=== PATIENT | female | born 1960 | race Caucasian/White ===

== ENCOUNTER → 2016-03-19 | Outpatient (CLI) | payer BC, OTHER ==
[~2016-03-19] MED LIST: ACET-1256 PO; LEVO-217 PO; OTC ACID REDUCER PO
== END | disposition home or self-care (01) ==
LOC: C.LABPVFM 14:29
PROVIDERS: ATTEND Family Medicine
DX: K65.1 Peritoneal abscess (principal)

== ENCOUNTER → 2017-01-25 | Outpatient (CLI) | payer BC ==
--- NOTE | 2017-01-26 15:31 | MAMMOGRAPHY REPORT ---
BILATERAL DIGITAL SCREENING MAMMOGRAM TOMOSYNTHESIS WITH CAD: 01/25/2017 CLINICAL HISTORY: Routine screening. TECHNIQUE: Breast tomosynthesis in addition to standard 2D mammography was performed. Current study was also evaluated with a Computer Aided Detection (CAD) system. COMPARISON: Comparison is made to exams dated: 01/20/2016 mammogram, 01/16/2015 mammogram, 01/03/2014 mammogram, 01/01/2013 mammogram - [facility], 03/20/2007, and 03/16/2006. BREAST COMPOSITION: The tissue of both breasts is almost entirely fatty. FINDINGS: No suspicious masses, calcifications, or areas of architectural distortion are noted in ei ther breast. There has been no significant interval change compared to prior exams. IMPRESSION: ACR BI-RADS CATEGORY 1: NEGATIVE There is no mammographic evidence of malignancy. A 1 year screening mammogram is recommended. The pa tient will receive written notification of the results. Approximately 10% of breast cancers are not detected with mammography. A negative mammographic report should not delay biopsy if a clinically suggestive mass is present. Valeria Bhatt M.D. ah/:01/26/2017 07:35:53 Custom Clothier: Estefania Gomez RT(R)(M), [facility] letter sent: Normal 1/2 BI-RADS Code: ACR BI-RADS Category 1: Negative
== END | disposition home or self-care (01) ==
LOC: C.MAMM 17:03
PROVIDERS: ATTEND Family Medicine
DX: Z12.31 Encounter for screening mammogram for malignant neoplasm of breast (principal)

== ENCOUNTER → 2017-07-19 | Outpatient (CLI) | payer BC ==
[2017-07-19 17:36] LABS: BASO % 0.2 %; BASO ABS # 0.01 K/uL (0-0.2); EOS % 0.2 %; EOS ABS # 0.01 K/uL (0-0.5); IG# 0.01 K/uL (0.00-0.02); LYMPH % 19.3 %; LYMPH ABS # 1.17 K/uL (1.2-3.4); MEAN CELL VOLUME 91.8 fL (80-100); MEAN CORPUSCULAR HEMOGLOBIN 30.6 pg (25-34); MEAN CORPUSCULAR HGB CONC 33.3 g/dl (32-36); MEAN PLATELET VOLUME 10.9 fL (7.4-10.4); MONO % 8.4 %; MONO ABS # 0.51 K/uL (0.11-0.59); NEUT % 71.7 %; NEUT ABS # 4.34 K/uL (1.4-6.5); PLATELET COUNT 232 K/uL (130-400); RED CELL DISTRIBUTION WIDTH CV 13.4 % (11.5-14.5); RED CELL DISTRIBUTION WIDTH SD 44.8 fL (36.4-46.3); WHITE BLOOD COUNT 6.05 K/uL (4.8-10.8)
[2017-07-19 17:55] LABS: ALBUMIN 2.5 gm/dl (3.4-5.0); ALT/SGPT 26 U/L (12-78); AST/SGOT 19 U/L (15-37); BLOOD UREA NITROGEN 50 mg/dl (7-18); CALCIUM 8.4 mg/dl (8.5-10.1); CARBON DIOXIDE 24 mmol/L (21-32); CREATININE 3.03 mg/dl (0.60-1.20); GLUCOSE 91 mg/dl (70-99); POTASSIUM 4.5 mmol/L (3.5-5.1); SODIUM 141 mmol/L (136-145)
[2017-07-19 18:06] LABS: ALKALINE PHOSPHATASE 89 U/L (45-117); TOTAL PROTEIN 6.6 gm/dl (6.4-8.2)
== END | disposition home or self-care (01) ==
LOC: C.LABPVFM 13:38
PROVIDERS: ATTEND Family Medicine
DX: R60.9 Edema, unspecified (principal)

== ENCOUNTER 2017-07-20 16:03 | Inpatient (IN) | payer BC ==
[~2017-07-20] VITALS: Ht 160 cm; Wt 119.3 kg
[2017-07-20 16:45] VITALS: BP 186/104; PULSE 72; TEMP 37; O2SAT 99; Ht 160 cm; Wt 119.3 kg
[2017-07-20 17:15] VITALS: BP 166/58; PULSE 74; O2SAT 99
[2017-07-20] MEDS ORDERED: HydrALAZINE HCL 20 MG/ML VIAL IV. PRN (17:30)
[2017-07-20] MEDS ORDERED: POLYETHYLENE (MIRALAX) 17 GM PACK PO PRN (17:30)
[2017-07-20] MEDS ORDERED: ONDANSETRON INJ 2 MG/ML 2 ML VIAL IV PRN (17:30)
[2017-07-20] MEDS ORDERED: ALUMINUM/MAGNESIUM/SIMETH (MAALOX MAX) 30 ML UDC PO PRN (17:30)
[2017-07-20] MEDS ORDERED: ZOLPIDEM TARTRATE 5 MG TAB PO PRN (17:30)
[2017-07-20] MEDS ORDERED: MoRPHine SULFATE 4 MG/ML 1 ML CARP\\VIAL IV PRN (17:30)
[2017-07-20] MEDS ORDERED: MAGNESIUM HYDROXIDE SUSP 30 ML UDC PO PRN (17:30)
[2017-07-20] MEDS ORDERED: ACETAMINOPHEN 325 MG TAB PO PRN (17:30)
[2017-07-20 18:08] LABS: HEMATOCRIT 35.5 % (37-47); HEMOGLOBIN 11.7 g/dL (12.0-16.0); MEAN CELL VOLUME 91.3 fL (80-100); MEAN CORPUSCULAR HEMOGLOBIN 30.1 pg (25-34); MEAN PLATELET VOLUME 9.8 fL (7.4-10.4); PLATELET COUNT 179 K/uL (130-400); RED CELL DISTRIBUTION WIDTH CV 13.3 % (11.5-14.5); RED CELL DISTRIBUTION WIDTH SD 44.2 fL (36.4-46.3); WHITE BLOOD COUNT 5.23 K/uL (4.8-10.8)
--- NOTE | 2017-07-20 18:20 | History and Physical ---
History & Physical Date & Time of Service: July 20, 2017 at 17:55 Chief Complaint: Bilateral Lower Leg Edema; Chf Primary Care Physician: Lucio Lowery M.D. History of Present Illness Source: patient, other 56 y/o F Hx Hypothyroidism, LE edema, obesity. She was recently evaluated for LE edema at her primary MD's office. She take Triamterene/HCTZ recently and was additionally prescribed Lasix following her MD visit one day ago. Prior to taking Lasix, labs were drawn. Her creatinine returned at 3. She does not have a history of CKD and was instructed to attend the hospital therefore. She denies any SOB, CP, nausea, vomiting or dysuria, although she does have urinary frequency which may be related to diuretic use. She did take a single dose of Lasix the AM of admission. It was noted that her SBP was > 180 on arrival and that a bladder scan revealed 440 CC. Past Medical/Surgical History 1) Hypothyroidism 2) LE edema 3) Obesity Family History Father following a CVA Mother due to [place] Social History Smoking Status: Never Smoker Marital Status: Occupational Status: unemployed Immunizations History of Influenza Vaccine: N/A History of Tetanus Vaccine?: Yes History of Pneumococcal: No History of Hepatitis B Vaccine: Unknown Allergies Coded Allergies: Amoxicillin (Verified Allergy, Unknown, CHILDHOOD, 04/06/12) Home Medications Scheduled Levothyroxine (Levothroid), 0.05 MG PO DAILY [Otc Acid Photo Print Specialist], 1 TAB PO DAILY Scheduled PRN Acetaminophen (Tylenol), 1,000 MG PO Q4 PRN Review of Systems Constitutional: No fever, No chills, No sweats Eyes: No worsening of vision ENT: No hearing loss, No unusual epistaxis, No nasal symptoms Respiratory: No cough, No wheezing Cardiovascular: No chest pain, No orthopnea, No PND Abdomen: No pain, No nausea, No vomiting Musculoskeletal: + problem reported (LE edema), No joint pain Genitourinary - Female: + urinary frequency, No dysuria Neurologic: No memory loss, No paralysis, No weakness Psychiatric: No depression symptoms Endocrine: No fatigue Hematologic / Lymphatic: No abnormal bleeding/bruising Integumentary: No rash Allergic / Immunologic: No environmental allergies Physical Exam Vital Signs Date Time Temp Pulse Resp B/P (MAP) Pulse Ox O2 Delivery O2 Flow Rate FiO2 07/20/17 17:15 74 18 166/58 (94) 99 Room Air 07/20/17 16:45 37.0 72 18 186/104 99 Room Air General Appearance: WD/WN Head: normocephalic Eyes: normal inspection ENT: normal ENT inspection, pharynx normal Neck: supple, no JVD Respiratory/Chest: chest non-tender, lungs clear, normal breath sounds Cardiovascular: regular rate, rhythm Abdomen/GI: normal bowel sounds, non tender, soft Back: normal inspection, no CVA tenderness Extremities/Musculoskelatal: + pertinent finding ( do not appreciate any pitting edema presently) 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 She was recently evaluated for LE edema at her primary MD's office. She take Triamterene/HCTZ recently and was additionally prescribed Lasix following her MD visit one day ago. Prior to taking Lasix, labs were drawn. Her creatinine returned at 3. She does not have a history of CKD and was instructed to attend the hospital therefore. She denies any SOB, CP, nausea, vomiting or dysuria, although she does have urinary frequency which may be related to diuretic use. She did take a single dose of Lasix the AM of admission. It was noted that her SBP was > 180 on arrival and that a bladder scan revealed 440 CC. 1) CORINNE - we do not have recent numbers for comparison. She does not have a history of renal insufficiency, however, we cannot be entirely sure that this is acute. Her normal K may point toward a more chronic process. Possible differential may include: - chronic retention - an ultrasound is ordered - we may have to obtain a CT due to her habitus if the study is not adequate - a treadwell is placed overnight. - HTN nephropathy - we will focus on improved BP control and have placed her on PRN Hydralazine for now - overdiuresis - diuretics have DCd - we will prvide aggressive IVF overnight - urine Na and creatinine are pending - Renal artery stenosis can be considered due to her elevated BP and creatinine - this should be pursued if the above etiologies are ruled out. A nephrology consult should be placed if hydration alone does not lead to improvement and would consider a urology consult if hydronephrosis is present. 2) LE edema - there is no pitting edema presently - the pt may need to pursue alternate methods of reducing edema to include pressure stockings, elevation and importantly, weight loss. 3) HTN - denies a history of - as mentioned, we have placed her on PRN Hydralizine to better trend her pressure and assess need for treatment - ultimately with improved renal function, she may benefit from an FILIBERTO or ARB. 4) Hypothyroidism - cont Synthroid Full code - Heparin prophylaxis Total time for this admit including review of labs, meds, imaging, records - discussion with pt and primary attending - 37 min Advanced Directives Existing Living Will: No Existing Power of Hydrographer: No Resuscitation Status VTE Prophylaxis Will order VTE Prophylaxis: Yes
[2017-07-20] MEDS: SODIUM CHLORIDE 0.9% 1000ML 1,000 ML IV SCH ×2 (18:29→23:55)
[2017-07-20 18:30] VITALS: BP 186/98
[2017-07-20 18:32] LABS: PTT PATIENT 27.8 SECONDS (21.0-31.0)
[2017-07-20 19:08] VITALS: BP 186/89
[2017-07-20] MEDS: HEPARIN SOD 5000 UNIT/0.5 ML CARP SQ SCH (19:30)
[2017-07-20 19:59] VITALS: BP 148/80; PULSE 68; TEMP 36.9; O2SAT 97
[2017-07-20] MEDS: RANITIDINE HCL 150 MG TAB PO SCH (20:50)
--- NOTE | 2017-07-20 21:57 | DIAGNOSTIC IMAGING REPORT ---
(RENAL)RETROPERITON COMP HISTORY: 56 years-old Female hydronephrosis acute hydronephrosis COMPARISON: None available TECHNIQUE: Multiple real-time sonographic images of the kidneys and urinary bladder were obtained assessing grayscale appearance and color flow FINDINGS: The right kidney measures 13.2 x 4.9 x 4.8 cm and is unremarkable without hydronephrosis, renal calculi or suspicious mass lesions. Cortical medullary differentiation is preserved. Incidental note is made of increased echogenicity of the hepatic parenchyma with poor through transmission. Left kidney measures 12.1 x 5.5 x 5.5 cm and is also within normal limits without renal calculi, hydronephrosis, or suspicious mass lesions. Cortical medullary differentiation is preserved. Urinary bladder is decompressed with bilateral ureteral jets noted. IMPRESSION: 1. Unremarkable sonographic appearance of the bilateral kidneys without renal calculi or hydronephrosis. 2. Decompressed urinary bladder. 3. Hepatic steatosis. The above report was generated using voice recognition software. It may contain grammatical, syntax or spelling errors. Electronically signed by: Ganesh Ontiveros M.D. 07/20/2017 9:56 PM Dictated Date/Time: 07/20/2017 9:54 PM
[2017-07-21] VITALS (8 sets, daily range): BP systolic 146–166; BP diastolic 75–94; PULSE 69–77; TEMP 36.4–37.1; O2SAT 95–98
[2017-07-21] MEDS: HEPARIN SOD 5000 UNIT/0.5 ML CARP SQ SCH ×3 (06:00→22:34)
[2017-07-21] MEDS: SODIUM CHLORIDE 0.9% 1000ML 1,000 ML IV SCH (06:44)
[2017-07-21] MEDS: LEVOTHYROXINE 50 MCG TAB PO SCH (06:45)
[2017-07-21 07:19] LABS: CALCIUM 7.8 mg/dl (8.5-10.1); POTASSIUM 4.4 mmol/L (3.5-5.1)
--- NOTE | 2017-07-21 09:32 | ECHOCARDIOGRAM REPORT ---
*NOTICE TO RECEIVING [employer] This information is strictly Confidential and protected under [place] law. [place] law prohibits you from making any further disclosure of this information unless further disclosure is expressly permitted by the written consent of the person to whom it pertains or is authorized by law. A general authorization for the release of medical or other information is not sufficient for this purpose. Hospital accepts no responsibility if the information is made available to any other person, INCLUDING THE PATIENT. Interpretation Summary * Name: ANDREW BARTON Study Date: 07/21/2017 06:58 AM BP: 166/87 mmHg * Patient Location: .2E\S\E208\S\1 HR: 72 * : 1960 (M/d/yyyy) Gender: Female Height: 63 in * Age: 56 yrs Ethnicity: [place] Weight: 258 lb * Ordering Physician: Ajit Cloud * Referring Physician: Lucio Lowery * Performed By: Debora Parish RDCS * * Reason For Study: CHF * BSA: 2.2 m2 * -- Conclusions -- * 1. Normal LV size. Mild concentric LVH. * 2. Normal LV systolic function. LVEF 55-60%. No regional wall motion abnormalities. * 3. Normal RV size and function. * 4. Grade I diastolic function. * 5. No significant valvular pathology. * 6. Compared with prior study on 11/16/2012: No significant changes. Procedure Details * A complete two-dimensional transthoracic echocardiogram was performed (2D, M-mode, Doppler and color flow Doppler). Left Ventricle * The left ventricle is grossly normal size. * There is mild concentric left ventricular hypertrophy. * Ejection Fraction = 55-60%. * No regional wall motion abnormalities noted. Right Ventricle * The right ventricle is grossly normal size. * The right ventricular systolic function is normal as assessed by tricuspid annular plane systolic excursion (TAPSE) (normal >1.5 cm). Atria * The left atrium is mildly dilated. * Right atrial size is normal. Mitral Valve * The mitral valve is grossly normal. * There is no mitral valve stenosis. * There is trace mitral regurgitation. Tricuspid Valve * There is trace tricuspid regurgitation. Aortic Valve * The aortic valve opens well. * The aortic valve is trileaflet. * No hemodynamically significant valvular aortic stenosis. * There is no significant aortic regurgitation. Great Vessels * The aortic root and proximal ascending aorta are normal sized. * IVC < 2.1, <50% change with respiration. Left Ventricular Diastolic Function * Grade I diastolic dysfunction, (abnormal relaxation pattern). MMode 2D Measurements and Calculations IVSd 1.3 cm IVSs 1.8 cm LVIDd 4.1 cm LVIDs 2.8 cm LVPWd 1.5 cm LVPWs 1.9 cm IVS/LVPW 0.87 FS 30.0 % EDV(Teich) 73.0 ml ESV(Teich) 30.8 ml EF(Teich) 57.7 % EDV(cubed) 67.5 ml ESV(cubed) 23.1 ml EF(cubed) 65.7 % % IVS thick 38.2 % % LVPW thick 27.7 % LV mass(C)d 220.8 grams LV mass(C)dI 102.5 grams/m\S\2 LV mass(C)s 224.2 grams LV mass(C)sI 104.0 grams/m\S\2 SV(Teich) 42.1 ml SI(Teich) 19.6 ml/m\S\2 SV(cubed) 44.3 ml SI(cubed) 20.6 ml/m\S\2 Ao root diam 3.0 cm Ao root area 7.3 cm\S\2 LA dimension 3.7 cm LA/Ao 1.2 LVAd ap4 31.8 cm\S\2 LVLd ap4 8.1 cm EDV(MOD-sp4) 101.4 ml EDV(sp4-el) 106.2 ml LVAs ap4 19.6 cm\S\2 LVLs ap4 7.1 cm ESV(MOD-sp4) 45.6 ml ESV(sp4-el) 45.8 ml EF(MOD-sp4) 55.1 % EF(sp4-el) 56.9 % LVAd ap2 28.7 cm\S\2 LVLd ap2 8.4 cm EDV(MOD-sp2) 78.7 ml EDV(sp2-el) 83.5 ml LVAs ap2 16.0 cm\S\2 LVLs ap2 6.8 cm ESV(MOD-sp2) 31.5 ml ESV(sp2-el) 31.9 ml EF(MOD-sp2) 60.0 % EF(sp2-el) 61.8 % LVLd %diff 3.9 % EDV(MOD-bp) 92.1 ml LVLs %diff -4.20 % ESV(MOD-bp) 38.2 ml EF(MOD-bp) 58.5 % SV(MOD-sp4) 55.8 ml SI(MOD-sp4) 25.9 ml/m\S\2 SV(MOD-sp2) 47.2 ml SI(MOD-sp2) 21.9 ml/m\S\2 SV(MOD-bp) 53.9 ml SI(MOD-bp) 25.0 ml/m\S\2 SV(sp4-el) 60.4 ml SI(sp4-el) 28.0 ml/m\S\2 SV(sp2-el) 51.6 ml SI(sp2-el) 23.9 ml/m\S\2 Doppler Measurements and Calculations MV E max mima 112.7 cm/sec MV A max mima 115.9 cm/sec MV E/A 0.97 MV dec time 0.27 sec Ao V2 max 136.4 cm/sec Ao max PG 7.4 mmHg Ao max PG (full) 4.4 mmHg LV V1 max PG 3.0 mmHg LV V1 max 87.1 cm/sec
[2017-07-21] MEDS ORDERED: NURSING VERBAL MED ORDER ONE (11:00)
--- NOTE | 2017-07-21 17:38 | Family Medicine Progress Note ---
Progress Note Date of Service July 21, 2017. Subjective Patient is sitting comfortably in bed, and denies any complaints at this time. Denies nausea, orthopnea, PND, or chest pain. Says the swelling in her legs has decreased somewhat since yesterday. Is eating and voiding well, no acute events overnight. Endorses a recent history of flu-like illness ~2 weeks ago, with persistent nausea after. She was seen by PCP for nausea, also a/w swelling of legs and treated with lasix and nausea medication. BMP in Jan 2016 revealed creatinine of 1.03. Says her BP was controlled with her current medication. Pt denies a FH of kidney disease, however states father from [place] at age 52. ROS See HPI for pertinent positives and negatives. Objective Physical Exam Notes: GENERAL: Awake, alert, well-appearing, in no distress. Obese. HENT: Normocephalic, atraumatic. EYES: Normal conjunctiva. Sclera non-icteric. NECK: Supple. FROM. No JVD. RESPIRATORY: Clear to auscultation. CARDIAC: Regular rate, normal rhythm. Extremities warm and well perfused. Pulses equal. ABDOMEN: Soft, non-distended. No tenderness to palpation. No rebound or guarding. No masses. LOWER EXTREMITIES: Calves are equal size bilaterally and non-tender. Trace edema. No discoloration. NEURO: No motor deficits noted. SKIN: No rash or jaundice noted. Assessment and Plan 56F here for CORINNE and leg swelling with recent h/o flu like illness 2 weeks prior. PMHx of HTN, obesity and hypothyroidism 1. nonoliguric CORINNE - output is adequate overnight and today - creatinine has not responded to fluids - FeNa calculated 1.3 - intrinsic causes may include ATN, uncontrolled hypertension - Renal US shows unremarkable b/l kidneys w/o calculi or hydronephrosis and hepatic steatosis. - UA shows 4+ protein which is in nephrotic range. - Recent flu-like illness may also have been contributory to an autoimmune process possibly - consider nephro consult if renal function worsens 2. Hypertension - Triamterene/HCTZ held due to elev manager interventional - 5mg hydralazine given yesterday - changed to low dose Metoprolol tartr 25mg x 1 dose given this evening. 3. LE edema - Echo 2017 shows grade I diastolic CHF, no significant changes when compared with study done in 2013. LVEF remains 55-60%. - pt may benefit from compression stockings and weight loss Hypothyroidism - cont synthroid DVT ppx: heparin Code: FULL Dispo: tele - to home on dc Current Inpatient Medications Medications (Trade) Dose Ordered Sig/Vinny Route Start Time Stop Time Status Last Admin Dose Admin Hydralazine HCl (HydrALAZINE INJ) 5 mg Q8H PRN IV. 07/20/17 17:30 08/19/17 17:29 07/21/17 07:44 5 MG Heparin Sodium (Porcine) (Heparin Sq 5000 Unit/0.5ml) 5,000 unit Q8 SQ 07/20/17 22:00 08/19/17 21:59 Acetaminophen (Tylenol Tab) 650 mg Q4H PRN PO 07/20/17 17:30 08/19/17 17:29 07/20/17 20:49 650 MG Al Hydrox/Mg Hydrox/Simethicone (Maalox Max Susp) 15 ml Q4H PRN PO 07/20/17 17:30 08/19/17 17:29 Magnesium Hydroxide (Milk Of Magnesia Susp) 30 ml Q12H PRN PO 07/20/17 17:30 08/19/17 17:29 Zolpidem Tartrate (Ambien Tab) 5 mg HSZ PRN PO 07/20/17 17:30 08/19/17 17:29 Ondansetron HCl (Zofran Inj) 4 mg Q6H PRN IV 07/20/17 17:30 08/19/17 17:29 Morphine Sulfate (MoRPHine SULFATE INJ) 2 mg Q30M PRN IV 07/20/17 17:30 08/03/17 17:29 Polyethylene (Miralax Powder Packet) 17 gm DAILY PRN PO 07/20/17 17:30 08/19/17 17:29 Levothyroxine Sodium (Synthroid Tab) 50 mcg DAILYBB PO 07/21/17 06:00 08/20/17 05:59 07/21/17 06:45 50 MCG Ranitidine HCl (zANTac TAB) 150 mg HS PO 07/20/17 21:00 08/19/17 20:59 07/20/17 20:50 150 MG Date Time Temp Pulse Resp B/P (MAP) Pulse Ox O2 Delivery O2 Flow Rate FiO2 07/21/17 15:40 37.1 74 18 162/92 (115) 97 Room Air 07/21/17 12:00 Room Air 07/21/17 11:29 36.4 70 18 166/94 (118) 98 07/21/17 08:00 Room Air 07/21/17 07:35 37.0 72 18 166/87 (113) 97 07/21/17 04:00 Room Air 07/21/17 03:35 36.9 69 19 166/89 (114) 96 Room Air 07/21/17 00:00 Room Air 07/21/17 00:00 36.8 75 20 146/75 (98) 95 Room Air 07/20/17 20:00 Room Air 07/20/17 19:59 36.9 68 18 148/80 (102) 97 Room Air 07/20/17 19:08 186/89 (121) 07/20/17 18:30 186/98 (127) 07/20/17 17:58 07/21/17 06:00 Test 07/20/17 17:58 07/20/17 19:05 07/21/17 06:00 Red Blood Count 3.89 M/uL (4.2-5.4) Mean Corpuscular Volume 91.3 fL (80-100) Mean Corpuscular Hemoglobin 30.1 pg (25-34) Mean Corpuscular Hemoglobin Concent 33.0 g/dl (32-36) RDW Standard Deviation 44.2 fL (36.4-46.3) RDW Coefficient of Variation 13.3 % (11.5-14.5) Mean Platelet Volume 9.8 fL (7.4-10.4) Prothrombin Time 10.2 SECONDS (9.0-12.0) Prothromb Time International Ratio 1.0 (0.9-1.1) Activated Partial Thromboplast Time 27.8 SECONDS (21.0-31.0) Partial Thromboplastin Ratio 1.1 Urine Color YELLOW Urine Appearance CLOUDY (CLEAR) Urine pH 5.5 (4.5-7.5) Urine Specific [place] 1.025 (1.000-1.030) Urine Protein 4+ (NEG) Urine Glucose (UA) NEG (NEG) Urine Ketones NEG (NEG) Urine Occult Blood 3+ (NEG) Urine Nitrite NEG (NEG) Urine Bilirubin NEG (NEG) Urine Urobilinogen NEG (NEG) Urine Leukocyte Esterase NEG (NEG) Urine WBC (Auto) 10-30 /hpf (0-5) Urine RBC (Auto) 10-30 /hpf (0-4) Urine Hyaline Casts (Auto) 10-30 /lpf (0-5) Urine Epithelial Cells (Auto) >30 /lpf (0-5) Urine Bacteria (Auto) NEG (NEG) Urine Random Creatinine 142.0 mg/dl Urine Random Sodium 90 mEq/L Anion Gap 6.0 mmol/L (3-11) Est Creatinine Clear Calc Drug Dose 25.5 ml/min Estimated GFR () 19.1 Estimated GFR (Non- 16.4 BUN/Creatinine Ratio 15.8 (10-20) Calcium Level 7.8 mg/dl (8.5-10.1) Magnesium Level 2.5 mg/dl (1.8-2.4) Continued [facility] stay due to: multiple IV medications needed Discharge planning: home Resident Tracking Resident Involvement: Resident Care Provided Care Provided: Adult Hospital Medicine Reviewed: Pt Seen/Exam by Me History denies any concerns Constitutional: denies: fever Respiratory: negative: short of breath Cardiovascular: denies chest pain General Appearance: no apparent distress Respiratory: lungs clear, no respiratory distress Cardiovascular: regular rate, rhythm Gastrointestinal: soft Neurologic/Psychiatric: alert, oriented x 3 Skin Characteristics: warm/dry Assessment/Plan Resident Physician Supervision Note: I independently interviewed and examined the patient and verified the dickerson history and physical, reviewed labs and image studies, discussed the case with the resident Dr. Wheeler and agree with the findings and care plan.
[2017-07-21] MEDS ORDERED: METOPROLOL TARTRATE 25 MG TAB PO ONE (17:51)
[2017-07-21] MEDS: RANITIDINE HCL 150 MG TAB PO SCH (18:22)
[2017-07-22] VITALS (9 sets, daily range): BP systolic 151–175; BP diastolic 82–97; PULSE 58–78; TEMP 36.5–37; O2SAT 96–98
[2017-07-22] MEDS: LEVOTHYROXINE 50 MCG TAB PO SCH (05:47)
[2017-07-22] MEDS: HEPARIN SOD 5000 UNIT/0.5 ML CARP SQ SCH ×3 (05:48→22:00)
[2017-07-22 06:02] LABS: BASO % 0.2 %; BASO ABS # 0.01 K/uL (0-0.2); HEMATOCRIT 32.7 % (37-47); HEMOGLOBIN 10.8 g/dL (12.0-16.0); IG# 0.01 K/uL (0.00-0.02); LYMPH ABS # 1.05 K/uL (1.2-3.4); MEAN CELL VOLUME 91.3 fL (80-100); MEAN CORPUSCULAR HEMOGLOBIN 30.2 pg (25-34); MEAN PLATELET VOLUME 10.2 fL (7.4-10.4); MONO % 7.8 %; MONO ABS # 0.37 K/uL (0.11-0.59); NEUT % 69.8 %; NEUT ABS # 3.33 K/uL (1.4-6.5); PLATELET COUNT 156 K/uL (130-400); RED CELL DISTRIBUTION WIDTH CV 13.3 % (11.5-14.5); RED CELL DISTRIBUTION WIDTH SD 44.8 fL (36.4-46.3); WHITE BLOOD COUNT 4.77 K/uL (4.8-10.8)
[2017-07-22 06:24] LABS: CALCIUM 7.7 mg/dl (8.5-10.1); CREATININE 3.12 mg/dl (0.60-1.20); POTASSIUM 4.5 mmol/L (3.5-5.1)
[2017-07-22] MEDS ORDERED: FUROSEMIDE INJ 40 MG in SYRINGE 0 ML IV ONE (11:00)
--- NOTE | 2017-07-22 13:14 | Nephrology Consultation ---
Nephrology Consultation Date & Providers Date of Consultation: July 22, 2017. Primary Care Provider: Lucio Lowery M.D. Referring Provider: Reason for Consultation CORINNE, proteinuria History of Present Illness Mrs. Shelby Nugent is a 56-year-old female who presented to [facility] on July 20 with lower extremity edema and acute renal insufficiency and accelerated hypertension. Shelby has normal kidney function at baseline. Serum creatinine in January 2017 was documented at 1.3 mg/dL. In June the patient and her suffered from a GI illness. She describes 2 weeks of loose stool, nausea and vomiting. Symptoms resolved approximately 1-2 weeks ago. Shelby started to notice swelling in her lower extremities around this time. Edema progressed gradually over days. She noted swelling in arms and legs and some puffiness in her face. She denied significant dyspnea. She denies similar symptoms in the past. Her PCP tried to treat the symptoms with HCTZ/ triamterene without response. Laboratory studies were ordered by the patient's PCP (Dr. Johnson) prior to admission to the hospital. Laboratory studies were notable for a serum creatinine of 3.1 mg/dL. Metabolic profile was otherwise notable for a serum albumin of 2.5. UA/microscopy documented 4+ protein with >30 RBC and >30 WBC. Renal ultrasound demonstrated normal appearing kidneys. Shelby has been non oliguric. She reported good urine output to an initial dose of furosemide. Diuretics have now been held for 24 hours. The patient was seen and evaluated in her hospital room this morning. Her was at the bedside. Medical records were reviewed in detail. Imaging including renal US and TTE were personally reviewed. Plan of care was discussed with the primary team. Shelby denies any NSAID use. She denies synovitis, arthritis or effusions. She denies oral ulcers or lesions. She denies skin rashes or lesions. There is no history of IV drug use or illicit substance use. Past Medical/Surgical History Medical: 1. Hypertension 2. Obesity 3. GERD 4. Hypothyroidism 5. Rosacea 6. Hyperlipidemia 7. Hiatal hernia Surgical: No significant history reported Allergies Coded Allergies: Amoxicillin (Verified Allergy, Unknown, CHILDHOOD, 04/06/12) Inpatient Medications Current Inpatient Medications Medications (Trade) Dose Ordered Sig/Vinny Route Start Time Stop Time Status Last Admin Dose Admin Hydralazine HCl (HydrALAZINE INJ) 5 mg Q8H PRN IV. 07/20/17 17:30 08/19/17 17:29 Future Hold 07/21/17 07:44 5 MG Heparin Sodium (Porcine) (Heparin Sq 5000 Unit/0.5ml) 5,000 unit Q8 SQ 07/20/17 22:00 08/19/17 21:59 Acetaminophen (Tylenol Tab) 650 mg Q4H PRN PO 07/20/17 17:30 08/19/17 17:29 07/20/17 20:49 650 MG Al Hydrox/Mg Hydrox/Simethicone (Maalox Max Susp) 15 ml Q4H PRN PO 07/20/17 17:30 08/19/17 17:29 Magnesium Hydroxide (Milk Of Magnesia Susp) 30 ml Q12H PRN PO 07/20/17 17:30 08/19/17 17:29 Zolpidem Tartrate (Ambien Tab) 5 mg HSZ PRN PO 07/20/17 17:30 08/19/17 17:29 Ondansetron HCl (Zofran Inj) 4 mg Q6H PRN IV 07/20/17 17:30 08/19/17 17:29 Morphine Sulfate (MoRPHine SULFATE INJ) 2 mg Q30M PRN IV 07/20/17 17:30 08/03/17 17:29 Polyethylene (Miralax Powder Packet) 17 gm DAILY PRN PO 07/20/17 17:30 08/19/17 17:29 Levothyroxine Sodium (Synthroid Tab) 50 mcg DAILYBB PO 07/21/17 06:00 08/20/17 05:59 07/22/17 05:47 50 MCG Ranitidine HCl (zANTac TAB) 150 mg HS PO 07/20/17 21:00 08/19/17 20:59 07/21/17 18:22 150 MG Family History No family history of kidney disease Social History Smoking Status: Never Smoker Marital Status: Occupation: unemployed Review of Systems A complete review of systems was performed. Pertinent positives are noted above. All other systems are negative. Physical Exam Date Time Temp Pulse Resp B/P (MAP) Pulse Ox O2 Delivery O2 Flow Rate FiO2 07/22/17 12:14 97 Room Air 07/22/17 10:51 37.0 73 20 169/91 (117) 98 Room Air 07/22/17 08:00 Room Air 07/22/17 07:29 37.0 65 20 153/94 (113) 97 Room Air 07/22/17 04:00 Room Air 07/22/17 03:34 37.0 78 16 168/91 (116) 96 Room Air 07/22/17 00:00 Room Air 07/21/17 23:00 36.8 77 16 151/75 (100) 96 Room Air 07/21/17 20:00 Room Air 07/21/17 19:52 36.9 70 18 164/86 (112) 96 Room Air 07/21/17 16:00 97 Room Air 07/21/17 15:40 37.1 74 18 162/92 (115) 97 Room Air General Appearance: no apparent distress, + obese Head: normocephalic, atraumatic Eyes: normal inspection, sclerae normal ENT: normal ENT inspection, pharynx normal Neck: supple, no JVD Respiratory/Chest: lungs clear, no respiratory distress, no accessory muscle use Cardiovascular: regular rate, rhythm, no gallop Abdomen/GI: non tender, soft Back: no CVA tenderness Extremities/Musculoskelatal: + pertinent finding (+4 pitting BL LE edema extending to the abdomen, symmmetric UE edema, no periorbital edema) Neurologic/Psych: alert, normal mood/affect Laboratory Results Last 24 Hours Test 07/22/17 05:39 07/22/17 10:50 07/22/17 12:23 White Blood Count 4.77 K/uL Red Blood Count 3.58 M/uL Hemoglobin 10.8 g/dL Hematocrit 32.7 % Mean Corpuscular Volume 91.3 fL Mean Corpuscular Hemoglobin 30.2 pg Mean Corpuscular Hemoglobin Concent 33.0 g/dl Platelet Count 156 K/uL Mean Platelet Volume 10.2 fL Neutrophils (%) (Auto) 69.8 % Lymphocytes (%) (Auto) 22.0 % Monocytes (%) (Auto) 7.8 % Eosinophils (%) (Auto) 0.0 % Basophils (%) (Auto) 0.2 % Neutrophils # (Auto) 3.33 K/uL Lymphocytes # (Auto) 1.05 K/uL Monocytes # (Auto) 0.37 K/uL Eosinophils # (Auto) 0.00 K/uL Basophils # (Auto) 0.01 K/uL RDW Standard Deviation 44.8 fL RDW Coefficient of Variation 13.3 % Immature Granulocyte % (Auto) 0.2 % Immature Granulocyte # (Auto) 0.01 K/uL Sodium Level 144 mmol/L Potassium Level 4.5 mmol/L Chloride Level 115 mmol/L Carbon Dioxide Level 24 mmol/L Anion Gap 5.0 mmol/L Blood Urea Nitrogen 50 mg/dl Creatinine 3.12 mg/dl Est Creatinine Clear Calc Drug Dose 24.5 ml/min Estimated GFR () 18.2 Estimated GFR (Non- 15.7 BUN/Creatinine Ratio 16.1 Random Glucose 93 mg/dl Calcium Level 7.7 mg/dl Chemistry Specimen Hemolysis Urine Color YELLOW Urine Appearance CLOUDY Urine pH 5.0 Urine Specific [place] 1.029 Urine Protein 4+ Urine Glucose (UA) NEG Urine Ketones NEG Urine Occult Blood 3+ Urine Nitrite NEG Urine Bilirubin NEG Urine Urobilinogen NEG Urine Leukocyte Esterase NEG Urine RBC (Auto) /hpf Urine Hyaline Casts (Auto) /lpf Urine RBC 5-10 /hpf Urine WBC 1-5 /hpf Urine Epithelial Cells >30 /lpf Urine Renal Epithelial Cells /lpf Urine Amorphous Sediment PRESENT Urine Bacteria NEG Urine Granular Casts >30 /lpf Urine Pathogenic Casts /lpf Urine Random Creatinine 179.0 mg/dl Urine Random Total Protein 2082.8 mg/dl Urine Protein/Creatinine Ratio 11.6 Impression (1) Acute renal insufficiency (2) Nephrotic syndrome (3) Hypertension (4) Hypoalbuminemia (5) Edema (6) Microscopic hematuria Mrs. Shelby Nugent is a 56-year-old female with edema, hypertension, acute renal insufficiency and hypoalbuminemia. Medical history is notable for essential hypertension, hyperlipidemia, obesity, hypothyroidism and GERD. She has been symptomatic for 1-2 weeks with edema. She describes symptoms of gastroenteritis preceding the onset of edema. Urine sediment notable for 4+ protein with >30 WBC and >30 RBC/hpf on presentation. Cellular findings less evident on repeat microscopy. Creatinine has been stable. Clinical presentation is less consistent with nephritis. The patient has clinical nephrosis. Onset appears to be fairly acute. She remains hypervolemic. Blood pressure remains elevated. I would suggest starting a regular loop diuretic (furosemide 40 mg now) to encourage a net negative fluid balance. I hold hold FILIBERTO/ARB for now pending proven stability of renal function. 24 hour urine collection has been requested. Serologic evaluation with be obtained with follow up blood work. I would like to monitor creatinine with repeat metabolic profile tomorrow AM. Serologic evaluation is to include SPEP/immunofix, hepatitis B/C, PLA2r ab and HALIMA. Presentation most consistent with a membranous nephropathy. Coordinating a kidney biopsy may ultimately be necessary for diagnosis. This was discussed with the patient and her . Once volume status and BP improved and kidney function stable, this could be coordinated as an outpatient. Note that urine microscopy is now showing granular cast consistent with some component of ATN. Recommendations -- Repeat UA/microscopy reviewed today -- Furosemide 40 mg IV now -- Document I/O's -- 24 hour urine protein -- Repeat metabolic profile tomorrow AM -- Check hepatitis profile, HALIMA, SPEP/immuno, PLA2r ab with next blood work -- Hold FILIBERTO/ARB for now -- Avoid NSAIDS -- Feet elevated, compression stockings as tolerated
--- NOTE | 2017-07-22 14:23 | Family Medicine Progress Note ---
Progress Note Date of Service July 22, 2017. Subjective Spoke at length with patient and . Patient had just been seen and examined by nephrology prior to me coming in, and she had some questions about why her kidneys were not working. I discussed possible causes like autoimmune and hypertension related, but I emphasized that more work up is still needed. She had no acute events overnight. She is eating breakfast this morning and voiding adequately. BP is moderately controlled with one dose of metoprolol tartrate 25mg last night, systolic is in 160s. Discussed her case with Dr. Howell. Patient will remain one more night for additional testing and diuresis. ROS See HPI for pertinent positives and negatives. Objective Physical Exam Notes: GENERAL: Awake, alert, well-appearing, in no distress. Obese. HENT: Normocephalic, atraumatic. EYES: Normal conjunctiva. Sclera non-icteric. NECK: Supple. FROM. No JVD. RESPIRATORY: Clear to auscultation. CARDIAC: Regular rate, normal rhythm. Extremities warm and well perfused. Pulses equal. ABDOMEN: Soft, non-distended. No tenderness to palpation. No rebound or guarding. No masses. LOWER EXTREMITIES: Calves are equal size bilaterally and non-tender. 2-3+ pitting edema, stable from yesterday's exam. No discoloration. NEURO: No motor deficits noted. SKIN: No rash or jaundice noted. Assessment and Plan 56F here for CORINNE and leg swelling with recent h/o flu like illness 2 weeks prior. PMHx of HTN, obesity and hypothyroidism, hyperlipidemia, rosacea 1. nonoliguric CORINNE - output is adequate overnight and today - creatinine has not responded to fluids - FeNa calculated 1.3 - intrinsic causes may include ATN, uncontrolled hypertension, nephrosis - Renal US shows unremarkable b/l kidneys w/o calculi or hydronephrosis and hepatic steatosis. - UA shows 4+ protein which is in nephrotic range. Repeat urine microscopy shows granular cast - Recent flu-like illness - Nephrology consulted - ordered 40mg IV Lasix, additional urine analysis, as well as hepatitis profile, HALIMA, SPEP/immuno, PLA2r ab with next blood work 2. 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 Will order additional dose tonight. 3. LE edema - Echo 11May 2018 shows grade I diastolic CHF, no significant changes when compared with study done in 2013. LVEF remains 55-60%. - pt may benefit from compression stockings and weight loss - 40mg IV Lasix ordered x1. Hypothyroidism - cont synthroid DVT ppx: heparin, SCD's Code: FULL Dispo: tele - to home on dc Current Inpatient Medications Medications (Trade) Dose Ordered Sig/Vinny Route Start Time Stop Time Status Last Admin Dose Admin Heparin Sodium (Porcine) (Heparin Sq 5000 Unit/0.5ml) 5,000 unit Q8 SQ 07/20/17 22:00 08/19/17 21:59 Acetaminophen (Tylenol Tab) 650 mg Q4H PRN PO 07/20/17 17:30 08/19/17 17:29 07/20/17 20:49 650 MG Al Hydrox/Mg Hydrox/Simethicone (Maalox Max Susp) 15 ml Q4H PRN PO 07/20/17 17:30 08/19/17 17:29 Magnesium Hydroxide (Milk Of Magnesia Susp) 30 ml Q12H PRN PO 07/20/17 17:30 08/19/17 17:29 Zolpidem Tartrate (Ambien Tab) 5 mg HSZ PRN PO 07/20/17 17:30 08/19/17 17:29 Ondansetron HCl (Zofran Inj) 4 mg Q6H PRN IV 07/20/17 17:30 08/19/17 17:29 Polyethylene (Miralax Powder Packet) 17 gm DAILY PRN PO 07/20/17 17:30 08/19/17 17:29 Levothyroxine Sodium (Synthroid Tab) 50 mcg DAILYBB PO 07/21/17 06:00 08/20/17 05:59 07/22/17 05:47 50 MCG Ranitidine HCl (zANTac TAB) 150 mg HS PO 07/20/17 21:00 08/19/17 20:59 07/21/17 18:22 150 MG Date Time Temp Pulse Resp B/P (MAP) Pulse Ox O2 Delivery O2 Flow Rate FiO2 07/22/17 13:23 37.0 73 20 97 07/22/17 12:14 97 Room Air 07/22/17 10:51 37.0 73 20 169/91 (117) 98 Room Air 07/22/17 08:00 Room Air 07/22/17 07:29 37.0 65 20 153/94 (113) 97 Room Air 07/22/17 04:00 Room Air 07/22/17 03:34 37.0 78 16 168/91 (116) 96 Room Air 07/22/17 00:00 Room Air 07/21/17 23:00 36.8 77 16 151/75 (100) 96 Room Air 07/21/17 20:00 Room Air 07/21/17 19:52 36.9 70 18 164/86 (112) 96 Room Air 07/21/17 16:00 97 Room Air 07/21/17 15:40 37.1 74 18 162/92 (115) 97 Room Air 07/22/17 05:39 Red Blood Count 3.58, Mean Corpuscular Volume 91.3, Mean Corpuscular Hemoglobin 30.2, Mean Corpuscular Hemoglobin Concent 33.0, Mean Platelet Volume 10.2, Neutrophils (%) (Auto) 69.8, Lymphocytes (%) (Auto) 22.0, Monocytes (%) (Auto) 7.8, Eosinophils (%) (Auto) 0.0, Basophils (%) (Auto) 0.2, Neutrophils # (Auto) 3.33, Lymphocytes # (Auto) 1.05, Monocytes # (Auto) 0.37, Eosinophils # (Auto) 0.00, Basophils # (Auto) 0.01 07/22/17 05:39 Test 07/22/17 05:39 07/22/17 10:50 07/22/17 12:23 White Blood Count 4.77 K/uL (4.8-10.8) Red Blood Count 3.58 M/uL (4.2-5.4) Hemoglobin 10.8 g/dL (12.0-16.0) Hematocrit 32.7 % (37-47) Mean Corpuscular Volume 91.3 fL (80-100) Mean Corpuscular Hemoglobin 30.2 pg (25-34) Mean Corpuscular Hemoglobin Concent 33.0 g/dl (32-36) Platelet Count 156 K/uL (130-400) Mean Platelet Volume 10.2 fL (7.4-10.4) Neutrophils (%) (Auto) 69.8 % Lymphocytes (%) (Auto) 22.0 % Monocytes (%) (Auto) 7.8 % Eosinophils (%) (Auto) 0.0 % Basophils (%) (Auto) 0.2 % Neutrophils # (Auto) 3.33 K/uL (1.4-6.5) Lymphocytes # (Auto) 1.05 K/uL (1.2-3.4) Monocytes # (Auto) 0.37 K/uL (0.11-0.59) Eosinophils # (Auto) 0.00 K/uL (0-0.5) Basophils # (Auto) 0.01 K/uL (0-0.2) RDW Standard Deviation 44.8 fL (36.4-46.3) RDW Coefficient of Variation 13.3 % (11.5-14.5) Immature Granulocyte % (Auto) 0.2 % Immature Granulocyte # (Auto) 0.01 K/uL (0.00-0.02) Anion Gap 5.0 mmol/L (3-11) Est Creatinine Clear Calc Drug Dose 24.5 ml/min Estimated GFR () 18.2 Estimated GFR (Non- 15.7 BUN/Creatinine Ratio 16.1 (10-20) Calcium Level 7.7 mg/dl (8.5-10.1) Chemistry Specimen Hemolysis Urine Color YELLOW Urine Appearance CLOUDY (CLEAR) Urine pH 5.0 (4.5-7.5) Urine Specific [place] 1.029 (1.000-1.030) Urine Protein 4+ (NEG) Urine Glucose (UA) NEG (NEG) Urine Ketones NEG (NEG) Urine Occult Blood 3+ (NEG) Urine Nitrite NEG (NEG) Urine Bilirubin NEG (NEG) Urine Urobilinogen NEG (NEG) Urine Leukocyte Esterase NEG (NEG) Urine RBC (Auto) /hpf (0-4) Urine Hyaline Casts (Auto) /lpf (0-5) Urine RBC 5-10 /hpf (0-4) Urine WBC 1-5 /hpf (0-5) Urine Epithelial Cells >30 /lpf (0-5) Urine Renal Epithelial Cells /lpf (0-5) Urine Amorphous Sediment PRESENT (NONE PRSENT) Urine Bacteria NEG (NEG) Urine Granular Casts >30 /lpf (0) Urine Pathogenic Casts /lpf (0) Urine Random Creatinine 179.0 mg/dl Urine Random Total Protein 2082.8 mg/dl (0-11.9) Urine Protein/Creatinine Ratio 11.6 (0-0.2) Continued [facility] stay due to: multiple IV medications needed Discharge planning: home Resident Tracking Resident Involvement: Resident Care Provided Care Provided: Adult Hospital Medicine Reviewed: Pt Seen/Exam by Me History no new concerns continues to feel swollen from fluids Constitutional: denies: fever Respiratory: negative: short of breath Cardiovascular: denies chest pain General Appearance: no apparent distress Respiratory: lungs clear, no respiratory distress Cardiovascular: regular rate, rhythm Neurologic/Psychiatric: alert, oriented x 3 Skin Characteristics: warm/dry Assessment/Plan Resident Physician Supervision Note: I independently interviewed and examined the patient and verified the dickerson history and physical, reviewed labs and image studies, discussed the case with the resident Dr. Wheeler and agree with the findings and care plan.
[2017-07-22] MEDS: RANITIDINE HCL 150 MG TAB PO SCH (17:58)
[2017-07-22] MEDS ORDERED: METOPROLOL TARTRATE 25 MG TAB PO SCH (18:00)
[2017-07-22] MEDS ORDERED: NURSING VERBAL MED ORDER ONE (18:15)
[2017-07-23] MEDS: HEPARIN SOD 5000 UNIT/0.5 ML CARP SQ SCH ×2 (05:42→12:59)
[2017-07-23] MEDS: LEVOTHYROXINE 50 MCG TAB PO SCH (06:08)
[2017-07-23 07:13] VITALS: BP 127/81; PULSE 52; TEMP 36.5; O2SAT 97
[2017-07-23 07:23] LABS: ALBUMIN 1.8 gm/dl (3.4-5.0); CALCIUM 8.1 mg/dl (8.5-10.1); CREATININE 3.07 mg/dl (0.60-1.20); PHOSPHORUS 4.2 mg/dl (2.5-4.9); POTASSIUM 4.4 mmol/L (3.5-5.1)
[2017-07-23 09:19] LABS: HEP C IGG 13 YRS+OLDER_RFLX NEG (NEG)
[2017-07-23] MEDS ORDERED: FUROSEMIDE 40 MG TAB PO ONE (09:30)
--- NOTE | 2017-07-23 10:26 | Nephrology Progress Note ---
Nephrology Progress Note Date of Service July 23, 2017. Chief Complaint CORINNE, proteinuria Subjective No acute events overnight. Shelby feels well this morning. Edema improved slightly. Weight was documented as increased. Good urine output. No shortness of breath. Appetite is good. Voiding urine without difficulty. No fevers or chills. Review of Systems A complete review of systems was performed. Pertinent positives are noted above. All other systems are negative. Vital Signs Last 8 Hrs Date Time Temp Pulse Resp B/P (MAP) Pulse Ox O2 Delivery O2 Flow Rate FiO2 07/23/17 07:13 36.5 52 20 127/81 (96) 97 Room Air Last Recorded Weight Weight (Kilograms): 119.300 Physical Exam General Appearance: no apparent distress, + obese Head: normocephalic, atraumatic Eyes: normal inspection, sclerae normal ENT: normal ENT inspection, pharynx normal Neck: supple, no JVD Respiratory/Chest: lungs clear, no respiratory distress, no accessory muscle use Cardiovascular: regular rate, rhythm, no gallop, no murmur Abdomen/GI: non tender, soft Extremities/Musculoskelatal: + pertinent finding (generalized edema) Neurologic/Psych: alert, normal mood/affect Family History No family history of kidney disease Social History Smoking Status: Never smoker Marital Status: Occupation: unemployed Laboratory Results Past 24 Hours 07/23/17 06:31 Test 07/22/17 10:50 07/22/17 12:23 07/23/17 06:31 Urine Color YELLOW Urine Appearance CLOUDY (CLEAR) Urine pH 5.0 (4.5-7.5) Urine Specific [place] 1.029 (1.000-1.030) Urine Protein 4+ (NEG) Urine Glucose (UA) NEG (NEG) Urine Ketones NEG (NEG) Urine Occult Blood 3+ (NEG) Urine Nitrite NEG (NEG) Urine Bilirubin NEG (NEG) Urine Urobilinogen NEG (NEG) Urine Leukocyte Esterase NEG (NEG) Urine RBC (Auto) /hpf (0-4) Urine Hyaline Casts (Auto) /lpf (0-5) Urine RBC 5-10 /hpf (0-4) Urine WBC 1-5 /hpf (0-5) Urine Epithelial Cells >30 /lpf (0-5) Urine Renal Epithelial Cells /lpf (0-5) Urine Amorphous Sediment PRESENT (NONE PRSENT) Urine Bacteria NEG (NEG) Urine Granular Casts >30 /lpf (0) Urine Pathogenic Casts /lpf (0) Urine Random Creatinine 179.0 mg/dl Urine Random Total Protein 2082.8 mg/dl (0-11.9) Urine Protein/Creatinine Ratio 11.6 (0-0.2) Anion Gap 5.0 mmol/L (3-11) Est Creatinine Clear Calc Drug Dose 25.0 ml/min Estimated GFR () 18.5 Estimated GFR (Non- 16.0 BUN/Creatinine Ratio 17.4 (10-20) Calcium Level 8.1 mg/dl (8.5-10.1) Phosphorus Level 4.2 mg/dl (2.5-4.9) Albumin 1.8 gm/dl (3.4-5.0) Cholesterol Level 230 mg/dl (0-200) Hepatitis B Surface Antibody NEG Hepatitis C Antibody NEG (NEG) Allergies Coded Allergies: Amoxicillin (Verified Allergy, Unknown, CHILDHOOD, 04/06/12) Medications Current Inpatient Medications Medications (Trade) Dose Ordered Sig/Vinny Route Start Time Stop Time Status Last Admin Dose Admin Heparin Sodium (Porcine) (Heparin Sq 5000 Unit/0.5ml) 5,000 unit Q8 SQ 07/20/17 22:00 08/19/17 21:59 Acetaminophen (Tylenol Tab) 650 mg Q4H PRN PO 07/20/17 17:30 08/19/17 17:29 07/20/17 20:49 650 MG Al Hydrox/Mg Hydrox/Simethicone (Maalox Max Susp) 15 ml Q4H PRN PO 07/20/17 17:30 08/19/17 17:29 Magnesium Hydroxide (Milk Of Magnesia Susp) 30 ml Q12H PRN PO 07/20/17 17:30 08/19/17 17:29 Zolpidem Tartrate (Ambien Tab) 5 mg HSZ PRN PO 07/20/17 17:30 08/19/17 17:29 Ondansetron HCl (Zofran Inj) 4 mg Q6H PRN IV 07/20/17 17:30 08/19/17 17:29 Polyethylene (Miralax Powder Packet) 17 gm DAILY PRN PO 07/20/17 17:30 08/19/17 17:29 Levothyroxine Sodium (Synthroid Tab) 50 mcg DAILYBB PO 07/21/17 06:00 08/20/17 05:59 07/23/17 06:08 50 MCG Ranitidine HCl (zANTac TAB) 150 mg DAILY@1800 PO 07/23/17 18:00 08/22/17 17:59 Furosemide (Lasix Tab) 40 mg QAM PO 07/24/17 08:00 08/23/17 07:59 Impression (1) Acute renal insufficiency (2) Nephrotic syndrome (3) Hypertension (4) Hypoalbuminemia (5) Edema (6) Microscopic hematuria Mrs. Shelby Nugent is a 56-year-old female with edema, hypertension, acute renal insufficiency and hypoalbuminemia. Medical history is notable for essential hypertension, hyperlipidemia, obesity, hypothyroidism and GERD. She has been symptomatic for 1-2 weeks with edema. She describes symptoms of gastroenteritis preceding the onset of swelling. Clinical presentation consistent with acute nephrosis. Urine sediment notable for 4+ protein with >30 WBC and >30 RBC/hpf on presentation. Cellular findings less evident on repeat microscopy. Creatinine has been elevated but stable. She remains hypervolemic. Blood pressure improved slightly with diuretics. We will continue furosemide 40 mg daily with additional doses as needed to encourage diuresis. FILIBERTO/ARB held for now pending proven stability of renal function. 24 hour urine collection is in process. Serologic evaluation including SPEP/immunofix, hepatitis B/C, PLA2r ab and HALIMA is pending. Shelby is clinically stable this morning. Edema and BP are improving. She is tolerating diuretic therapy. Once 24 hour urine is complete, may be able to discharge home with outpatient follow up. Note that urine microscopy is now showing granular cast consistent with some component of ATN. I will clinically monitor this prior to starting FILIBERTO or ARB. Recommendations -- Furosemide 40 mg PO, increase as needed to encourage diuresis -- Document I/O's and daily AM weight -- 24 hour urine protein in process -- Hepatitis profile, HALIMA, SPEP/immuno, PLA2r ab are pending -- Hold FILIBERTO/ARB for now -- Avoid NSAIDS -- Feet elevated, compression stockings as tolerated -- Repeat metabolic profile in 1 week of discharge -- I will coordinate follow up with me in the [place] office for Monday (07/28)
[2017-07-23] MEDS ORDERED: LSX40 PO (12:52)
[2017-07-23 13:00] VITALS: BP 127/81; PULSE 52; TEMP 36.5; O2SAT 97
--- NOTE | 2017-07-23 13:02 | Discharge Instructions ---
Discharge Instructions Date of Service July 23, 2017. Admission Reason for Admission: Bilateral Lower Leg Edema; Chf Discharge Discharge Diagnosis / Problem: Acute Kidney Insufficiency, nephrosis Discharge Goals Goal(s): Decrease discomfort, Improve function, Diagnostic testing, Therapeutic intervention Activity Recommendations Activity Limitations: per Instructions/Follow-up section . Instructions / Follow-Up Instructions / Follow-Up You were admitted due to abnormal labs that showed kidney disfunction. Your kidney disfunction did not improve with simple fluids, and initial tests were inconclusive. For this reason we had Dr. Howell, who is a wardrobe attendant, see you, and he has ordered multiple tests and blood work, results of which are still pending. We have sent a script to your pharmacy for a water pill called Lasix ( furosemide) which you have already been prescribed -- this script is for a slightly higher dose. I have ordered 2 weeks for this, with the aim that when you see Dr. Howell on 28 July, he can adjust your medications from there. Please STOP taking Triamterene/HCTZ medication. Please start taking a new blood pressure medication we are sending to your pharmacy. It is called Metoprolol tartrate and you will be taking it twice a day -- this will be reviewed by your primary physician for adjustments. It is safe for your kidneys. Please also make an appointment with your primary care physician in the next 1- 2 weeks to follow up regarding this hospital stay. Be well A Summer Current Hospital Diet Patient's current hospital diet: AHA Diet (Heart Healthy) Discharge Diet Recommended Diet: AHA Diet (Heart Healthy) Procedures Procedures Performed: Renal ultrasound: "IMPRESSION: 1. Unremarkable sonographic appearance of the bilateral kidneys without renal calculi or hydronephrosis. 2. Decompressed urinary bladder. 3. Hepatic steatosis. " Heart Echocardiogram " * -- Conclusions -- * 1. Normal LV size. Mild concentric LVH. * 2. Normal LV systolic function. LVEF 55-60%. No regional wall motion abnormalities. * 3. Normal RV size and function. * 4. Grade I diastolic function. * 5. No significant valvular pathology. * 6. Compared with prior study on 11/16/2012: No significant changes. Procedure Details * A complete two-dimensional transthoracic echocardiogram was performed (2D, M-mode, Doppler and color flow Doppler). Left Ventricle * The left ventricle is grossly normal size. * There is mild concentric left ventricular hypertrophy. * Ejection Fraction = 55-60%. * No regional wall motion abnormalities noted." Pending Studies Studies pending at discharge: yes List of pending studies: Alpha 1 and 2 globulins Beta 1 and 2 globulins Gamma globulins Monoclonal peak 3 Ser Monoclonal protein Ser monoclonal prot 2 PEP interpretation Serum Immunofixation Total Protein BENEDICTO Albumin BENEDICTO HALIMA screen Urine Urine total vol/protein and prot/creat ratio Laboratory Results Lipid Panel Test 07/23/17 06:31 Range/Units Cholesterol Level 230 H 0-200 mg/dl Medical Emergencies . Who to Call and When: Medical Emergencies: If at any time you feel your situation is an emergency, please call 911 immediately. . Non-Emergent Contact Non-Emergency issues call your: Primary Care Provider, Telegraph Service Clerk Call Non-Emergent contact if: you have any medication questions . . "Provider Documentation" section prepared by Lashanda Wheeler. .
[2017-07-23] MEDS ORDERED: METO25TA56 PO (13:03)
[2017-07-23] MEDS ORDERED: ATOR10TA82 PO (16:26)
--- NOTE | 2017-07-23 16:40 | Discharge Summary ---
Discharge Summary Date of Service July 23, 2017. Discharge Summary Admission Date: July 20, 2017 at 17:35 Discharge Date: July 23, 2017 Discharge Disposition: Home Principal Diagnosis: Acute Renal Insufficiency Problems/Secondary Diagnoses: Hypertension, lower extremity edema, hypercholesterolemia Immunizations: Have You Had Influenza Vaccine: N/A History of Tetanus Vaccine?: Yes History of Pneumococcal: No History of Hepatitis B Vaccine: Unknown Medication Reconciliation New Medications: Atorvastatin (Lipitor) 10 Mg Tab 1 TAB PO DAILY for 30 Days, #30 TAB 5 Refills Metoprolol Tartrate (Lopressor) (Lopressor) 25 Mg Tab 1 TAB PO BID for 30 Days, #60 TAB Furosemide (Furosemide) 40 Mg Tab 40 MG PO QAM for 14 Days, #14 TAB Continued Medications: Acetaminophen (Tylenol) 500 Mg Tab 1000 MG PO Q4 PRN, TAB Levothyroxine (Levothroid) 0.05 Mg Tab 0.05 MG PO DAILY, TAB [Otc 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 No acute events overnight. Eating and voiding well. Output is -2L thus far. Reports edema in legs is somewhat improved. Has questions regarding moving forward, discussed that she will have outpatient follow up for review of pending studies with Dr. Howell. ROS See HPI for pertinent positives and negatives. PHYSICAL EXAM GENERAL: Awake, alert, well-appearing, in no distress. Obese. HENT: Normocephalic, atraumatic. EYES: Normal conjunctiva. Sclera non-icteric. NECK: Supple. FROM. No JVD. RESPIRATORY: Clear to auscultation. CARDIAC: Regular rate, normal rhythm. Extremities warm and well perfused. Pulses equal. ABDOMEN: Soft, non-distended. No tenderness to palpation. No rebound or guarding. No masses. LOWER EXTREMITIES: Calves are equal size bilaterally and non-tender. 2+ pitting edema, stable from yesterday's exam. No discoloration. NEURO: No motor deficits noted. SKIN: No rash or jaundice noted. Hospital Course Ms. Nugent is a pleasant 56 year old female who presents as a direct admission from her PCP office due to acute renal insufficiency with a creatinine of 3. Patient has a PMH significant for hypothyroidism, lower extremity edema, rosacea, hyperlipidemia and hypertension. She did describe a history of flu like illness with diarrhea and vomiting 2 weeks prior, and a history of acute monoarticular joint pain prior to her flu like illness, that had since resolved. She was at first treated with fluids and her home lasix and triamterene/HCTZ were held. Creatinine did not improve with hydration. Urinalysis did show 4+ protein as well as WBC and RBCs. Nephrology was consulted. Fluids were stopped and additional testing commenced, and most are pending, as below. Hep C and B were negative. Renal US also showed no abnormalities, and echocardiogram showed no significant changes compared to prior study in 2013. Pt has mild grade I diastolic disfunction. 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 She did respond well to lasix and her hypervolemia improved. For her hypertension we sent her home on metoprolol tartr 25mg BID to start, and will defer further management to primary. Per nephrology recs, would AVOID FILIBERTO/ARBs and NSAIDs pending further studies and likely biopsy outpatient. List of pending studies: Alpha 1 and 2 globulins Beta 1 and 2 globulins Gamma globulins Monoclonal peak 3 Ser Monoclonal protein Ser monoclonal prot 2 PEP interpretation Serum Immunofixation Total Protein BENEDICTO Albumin BENEDICTO HALIMA screen Urine Urine total vol/protein and prot/creat ratio It was a pleasure to take care of Ms. Hernandes Jenelle Wheeler Total Time Spent: Greater than 30 minutes This includes examination of the patient, discharge planning, medication reconciliation, and communication with other providers. Discharge Instructions Please refer to the electronic Patient Visit Report (Discharge Instructions) for additional information. Additional Copies To Lucio Lowery M.D.; Chriss Howell D.O. Resident Tracking Resident Involvement: Resident Care Provided Care Provided: Adult Hospital Medicine Reviewed: Pt Seen/Exam by Me History no concerns Constitutional: denies: fever Respiratory: negative: short of breath Cardiovascular: denies chest pain Gastrointestinal/Abdominal: negative: abdominal pain General Appearance: no apparent distress Respiratory: lungs clear, no respiratory distress Cardiovascular: regular rate, rhythm Neurologic/Psychiatric: alert, oriented x 3 Skin Characteristics: warm/dry Assessment/Plan Resident Physician Supervision Note: I independently interviewed and examined the patient and verified the dickerson history and physical, reviewed labs and image studies, discussed the case with the resident Dr. Wheeler and agree with the findings and care plan. Time spent in discharge 35 min
[2017-07-23] MEDS ORDERED: RANITIDINE HCL 150 MG TAB PO SCH (18:00)
[2017-07-24] MEDS ORDERED: FUROSEMIDE 40 MG TAB PO SCH (08:00)
[2017-07-25 16:09] LABS: ANA SCREEN TC 249X NEGATIVE (NEGATIVE)
== END 2017-07-23 14:26 | disposition home or self-care (01) | DRG 683 ==
LOC: C.2E 16:03 → UNDOADMIN 16:03 → C.2E 17:35 → ENRESERV 07-22 13:51 → C.4E 07-22 15:04
PROVIDERS: ADMIT Internal Medicine; ATTEND Family Medicine
DX: N17.9 Acute kidney failure, unspecified (principal); Z68.42 Body mass index [BMI] 45.0-49.9, adult; R60.9 Edema, unspecified; E03.9 Hypothyroidism, unspecified; E66.9 Obesity, unspecified; Z82.3 Family history of stroke; Z88.1 Allergy status to other antibiotic agents

== ENCOUNTER → 2017-11-03 | Outpatient (CLI) | payer BC ==
[~2017-11-03] MED LIST changes: -ACET-1256 PO; +ATOR-54 PO; +CHOL1CHW4 PO; +FURO40TA3 PO; -LEVO-217 PO; +LEVO50TA PO; -OTC ACID REDUCER PO; +RANI1TAB77 PO
== END | disposition home or self-care (01) ==
LOC: C.LABPVFM 16:43
PROVIDERS: ATTEND Family Medicine
DX: T14.8XXA Other injury of unspecified body region, initial encounter (principal); X58.XXXA Exposure to other specified factors, initial encounter

== ENCOUNTER → 2017-11-03 | Outpatient (CLI) | payer BC ==
[2017-11-03 13:50] LABS: ALBUMIN 2.8 gm/dl (3.4-5.0); ALKALINE PHOSPHATASE 54 U/L (45-117); ALT/SGPT 60 U/L (12-78); AST/SGOT 13 U/L (15-37); BLOOD UREA NITROGEN 78 mg/dl (7-18); CALCIUM 9.1 mg/dl (8.5-10.1); CARBON DIOXIDE 24 mmol/L (21-32); CHOLESTEROL 256 mg/dl (0-200); CREATININE 2.41 mg/dl (0.60-1.20); GLUCOSE 86 mg/dl (70-99); LDL CHOLESTEROL CALCULATED 138 mg/dl; PHOSPHORUS 4.2 mg/dl (2.5-4.9); POTASSIUM 4.2 mmol/L (3.5-5.1); SODIUM 138 mmol/L (136-145); TOTAL PROTEIN 6.6 gm/dl (6.4-8.2)
== END | disposition home or self-care (01) ==
LOC: C.LABBFT 08:03
PROVIDERS: ATTEND Internal Medicine Nephrology
DX: E03.9 Hypothyroidism, unspecified (principal); E78.5 Hyperlipidemia, unspecified; R60.0 Localized edema; K21.9 Gastro-esophageal reflux disease without esophagitis; N05.1 Unspecified nephritic syndrome with focal and segmental glomerular lesions